=== PATIENT | female | born 1980 | race Caucasian/White ===

== ENCOUNTER → 2018-02-21 | Day surgery (SDC) | payer OTHER ==
[~2018-02-21] MED LIST: PROSOM PO; YAZ 28 TABLET1 EACH PO
== END | disposition home or self-care (01) ==
LOC: ADM 02-19 11:45 → CIR.AMB 09:16
DX: N94.89 Other specified conditions associated with female genital organs and menstrual cycle (principal); R10.2 Pelvic and perineal pain